=== PATIENT | female | born 1950 | race Caucasian/White ===

== ENCOUNTER 2018-11-03 16:34 | Emergency (ER) | payer MEDICARE, BC ==
[2018-11-03 17:21] LABS: ANION GAP 15.3; CHLORIDE,CL 103 mmol/L (101-111); SODIUM,NA 136 mmol/L (135-145)
--- NOTE | 2018-11-03 17:40 | EDM.PDOC ---
ED HPI GENERAL MEDICAL PROBLEM - General Chief Complaint: Trauma Stated Complaint: FELL DOWN STAIRS Time Seen by Provider: 11/03/18 17:10 Source of Information: Reports: Patient History Limitations: Reports: No Limitations - History of Present Illness INITIAL COMMENTS - FREE TEXT/NARRATIVE: Patient fell down 7 stairs and hit face, wrists and knees. Right wrist is in a lot of pain. Left wrist also hurts, but not as bad. Patient takes aspirin daily. drove her in personal vehicle to ER. Primary survey: Airway: open and patent Breathing: regular without additional effort Circulation: no major bleeding noticed Deformity: some swelling on the lateral side of her right wrist. Expose: as appropriate GCS: 15 Secondary survey: HEENT Head: normocephalic, atraumatic Face: scraped upper lip Eyes: PERRLA Ears: no obvious trauma, no bleeding in the canal Nose: no deformity, no bleeding, mucosa moist Mouth: no noted trauma Throat: no abnormalities noted Neck: supple normal ROM, no cervical tenderness Chest: lung sounds clear and equal bilaterally, heart RRR, no murmurs, rubs or gallops Abdomen: normal bowel sounds, no tenderness to palpation, no organomegaly Pelvis: stable Extremities: swelling of right and left wrist, scrape of the right knee. Provider trauma notes: Arrival time: 16:38 GCS on arrival: 15 C-collar present on arrival: no placed by ED nurse at 16:58 GCS at one hour: 15 Time of primary survey: 17:10 Time of secondary survey: 1715 Time C-collar cleared: By: Oswaldo Franco Time removed: 1758 GCS discharge: Onset: Today Onset Date: 11/03/18 Location: Reports: Face, Upper Extremity, Left, Upper Extremity, Right, Lower Extremity, Right Quality: Reports: Stabbing, Throbbing Severity: Moderate Improves with: Reports: Immobilization Worsens with: Reports: Movement Context: Reports: Trauma Associated Symptoms: Reports: Headaches. Denies: Confusion, Shortness of Breath - Related Data Allergies Allergy/AdvReac Type Severity Reaction Status Date / Time erythromycin base Allergy Hives Verified 11/29/16 23:15 naproxen Allergy Hives Verified 11/29/16 23:15 Penicillins Allergy Hives Verified 11/29/16 23:15 Home Meds: Home Meds Albuterol [Ventolin HFA] 1 puff .XX ASDIRECTED PRN 11/03/18 [History] Aspirin [Ecotrin] 81 mg PO DAILY 11/03/18 [History] Digoxin 125 mcg PO DAILY 11/03/18 [History] Diltiazem HCl [Cartia Xt] 120 mg PO DAILY 11/03/18 [History] Fluticasone/Salmeterol [Advair 250-50 Diskus] 1 puff INH BID 11/03/18 [History] Isosorbide Mononitrate [Isosorbide Mononitrate ER] 30 mg PO DAILY 11/03/18 [ History] Levothyroxine Sodium [Synthroid] 100 mcg PO DAILY 11/03/18 [History] Nitroglycerin 0.4 mg SL ASDIRECTED PRN 11/03/18 [History] Omeprazole 20 mg PO DAILY 11/03/18 [History] atorvaSTATin [Lipitor] 10 mg PO BEDTIME 11/03/18 [History] Past Medical History Cardiovascular History: Reports: Hypertension, [place] Oncologic (Cancer) History: Reports: Breast - Past Surgical History Oncologic Surgical History: Reports: Mastectomy Social & Family History - Caffeine Use Caffeine Use: Reports: None Review of Systems - Review of Systems Review Of Systems: See Below Constitutional: Reports: No Symptoms Eyes: Reports: No Symptoms Ears: Reports: No Symptoms Nose: Reports: No Symptoms Mouth/Throat: Reports: No Symptoms Respiratory: Reports: No Symptoms Cardiovascular: Reports: No Symptoms GI/Abdominal: Reports: No Symptoms Musculoskeletal: Reports: Arm Pain Skin: Reports: Bruising Neurological: Reports: Headache, Tremors. Denies: Confusion, Dizziness Psychiatric: Reports: No Symptoms ED EXAM, GENERAL - Physical Exam Exam: See Below Exam Limited By: No Limitations General Appearance: Alert Eye Exam: Bilateral Eye: EOMI, Normal Inspection, PERRL Ears: Normal External Exam, Normal Canal, Hearing Grossly Normal, Normal TMs Nose: Normal Inspection, Normal Mucosa, No Blood Throat/Mouth: Normal Inspection, Normal Lips, Normal Teeth, Normal Gums, Normal Oropharynx, Normal Voice, No Airway Compromise Head: Facial Tenderness, Other (abrasion to right upper lip and contusion to left cheek) Neck: Normal Inspection, Supple, Tender Midline (tender at the posterior occiput and tender to lateral movement) Respiratory/Chest: No Respiratory Distress, Lungs Clear, Normal Breath Sounds, No Accessory Muscle Use, Chest Non-Tender Cardiovascular: Normal Peripheral Pulses, Regular Rate, Rhythm, No Edema, No Gallop, No JVD, No Murmur, No Rub GI/Abdominal: Normal Bowel Sounds, Soft, Non-Tender, No Organomegaly, No Distention, No Abnormal Bruit, No Mass (Female) Exam: Deferred Rectal (Female) Exam: Deferred Extremities: Arm Pain (bilateral wrists ), Leg Pain (bilateral knee contusions) Neurological: Alert, Oriented, Normal Cognition Psychiatric: Normal Affect, Normal Mood Skin Exam: Warm, Dry, Intact, Normal Color, No Rash ED TRAUMA PROCEDURES - Splinting Right Upper Extremity Splint Site: right wrist Pre-Procedure NV Status: Normal Post-Procedure NV Status: Normal Splint Material: Fiberglass Splint Design: Gutter Applied & Form Fitted By: Provider Provider Post-Splint Application NV Check: NV Status Normal, Good Position Complications: No Left Upper Extremity Pre-Procedure NV Status: Normal Post-Procedure NV Status: Normal Splint Material: Velcro Splint Design: Other Applied & Form Fitted By: Nurse Provider Post-Splint Application NV Check: NV Status Normal, Good Position Complications: No Course - Orders/Labs/Meds Orders: Active Orders 24 hr Category Date Time Status Cervical Spine wo Cont [CT] Urgent Exams 11/03/18 17:02 Ordered Knee 1V or 2V Lt [CR] Urgent Exams 11/03/18 17:11 Taken Knee 1V or 2V Rt [CR] Urgent Exams 11/03/18 17:11 Taken Max Facial Sinus wo Cont [CT] Urgent Exams 11/03/18 17:02 Ordered Wrist Comp Min 3V Bi [CR] Urgent Exams 11/03/18 17:02 Taken Labs: Laboratory Tests 11/03/18 11/03/18 Range/Units 16:46 16:46 WBC 8.2 (5.0-10.0) 10^3/uL RBC 4.04 L (4.2-5.4) 10^6/uL Hgb 11.9 L (12.0-16.0) g/dL Hct 36.8 L (37.0-47.0) % MCV 91.1 (80-100) fL MCH 29.5 (27.0-34.0) pg MCHC 32.3 L (33.0-35.0) g/dL Plt Count 256 (150-450) 10^3/uL Neut % (Auto) 64.8 (42.2-75.2) % Lymph % (Auto) 23.4 (20.5-50.1) % [place] % (Auto) 9.8 H (2-8) % Eos % (Auto) 1.6 (1.0-3.0) % Baso % (Auto) 0.4 (0.0-1.0) % Sodium 136 (135-145) mmol/L Potassium 4.3 (3.6-5.0) mmol/L Chloride 103 (101-111) mmol/L Carbon Dioxide 22.0 (21.0-31.0) mmol/L Anion Gap 15.3 BUN 21 H (7-18) mg/dL Creatinine 1.2 (0.6-1.3) mg/dL Est Cr Clr Drug Dosing TNP Estimated GFR (MDRD) 44 BUN/Creatinine Ratio 17.50 Glucose 133 H (74-105) mg/dL Calcium 9.1 (8.4-10.2) mg/dl Total Bilirubin 0.6 (0.2-1.0) mg/dL AST 32 (10-42) IU/L ALT 22 (10-60) IU/L Alkaline Phosphatase 69 (42-121) IU/L Total Protein 7.2 (6.7-8.2) g/dl Albumin 4.3 (3.2-5.5) g/dl Globulin 2.9 Albumin/Globulin Ratio 1.48 - Re-Assessments/Exams Free Text/Narrative Re-Assessment/Exam: 11/03/18 18:13 CT of c-spine reviewed, c-collar removed. minimal pain on palpation at the posterior occiput. Radiology reports from [facility] were reviewed and scanned into patient record. 11/03/18 18:14 Departure - Departure Time of Disposition: 18:17 Disposition: Home, Self-Care 01 Condition: Fair Clinical Impression: Fall down stairs Qualifiers: Encounter type: initial encounter Qualified Code(s): W10.8XXA - Fall (on) (from ) other stairs and steps, initial encounter Wrist fracture, bilateral Qualifiers: Encounter type: initial encounter Fracture type: closed Qualified Code(s): S62.101A - Fracture of unspecified carpal bone, right wrist, initial encounter for closed fracture; S62.102A - Fracture of unspecified carpal bone, left wrist , initial encounter for closed fracture Contusion Qualifiers: Encounter type: initial encounter Contusion area: knee Laterality: unspecified laterality Qualified Code(s): S80.00XA - Contusion of unspecified knee, initial encounter - Discharge Information *PRESCRIPTION DRUG MONITORING PROGRAM REVIEWED*: Not Applicable *COPY OF PRESCRIPTION DRUG MONITORING REPORT IN PATIENT CHRISTIANO: Not Applicable Instructions: Wrist Fracture Treated With Immobilization, [id number], Contusion, [id number] Forms: ED Department Discharge Care Plan Goals: Patient and spouse were advised on bilateral wrist fractures with the right being worse than the left. The patient should f/u with orthopedic provider within the next week. If the patient has any other sx or concerns contact primary care facility or come back to the ER. - Problem List Review Problem List Initiated/Reviewed/Updated: Yes - Assessment/Plan Assessment:: 68 y/o female presents with bilateral wrist pain, headache, scraped right knee after falling down 7 steps. Patient has impacted and comminuted distal radial fracture on right and impacted distal radial fracture on the left. No neck, face or knee fractures. Plan: Splint right and left wrists
[2018-11-03] MEDS ORDERED: Acetaminophen 325 MG Tab PO ONE (18:34)
== END 2018-11-03 18:41 | disposition home or self-care (01) ==
LOC: DL.ED 16:34
DX: S62.101A Fracture of unspecified carpal bone, right wrist, initial encounter for closed fracture (principal); S62.102A Fracture of unspecified carpal bone, left wrist, initial encounter for closed fracture; S80.00XA Contusion of unspecified knee, initial encounter; I10 Essential (primary) hypertension; Z88.1 Allergy status to other antibiotic agents; Z79.899 Other long term (current) drug therapy; Z79.82 Long term (current) use of aspirin; W10.8XXA Fall (on) (from) other stairs and steps, initial encounter
CPT/HCPCS: 29125; 36415; 70486; 72125; 73110-50; 73560-LT; 73560-RT; 80053; 85025; 99284; A9270-GY

== ENCOUNTER 2019-07-08 12:15 | Emergency (ER) | payer MEDICARE, BC ==
--- NOTE | 2019-07-08 12:24 | EDM.PDOC ---
ED HPI GENERAL MEDICAL PROBLEM - General Chief Complaint: Upper Extremity Injury/Pain Stated Complaint: PT FELL AND INJURED LEFT ELBOW Time Seen by Provider: 07/08/19 12:40 Source of Information: Reports: Patient, Family, Old Records, RN, RN Notes Reviewed History Limitations: Reports: No Limitations - History of Present Illness INITIAL COMMENTS - FREE TEXT/NARRATIVE: Pt presents to ER from home by POV, ambulatory to the ER with c/o left elbow pain, and also some minor pain to the B/L knees, and left hip. Pt admits to mild neck pain, and that she hit her nose hard enough to cause a brief self limited nose bleed, and that she has some swelling & bruise at the left eyebrow. Pt takes Aspirin 81mg daily. At this point the triage nurse informed me that she was converting the pt to a trauma chart without full trauma activation per the trauma policy. The pt denies any symptoms preceding the fall such as chest pain, dizziness, syncope, blurred vision, or motor weakness. Pt states she simply tripped over a boot rack. Pt denies LOC, nausea, vomiting, or drainage of clear or blood fluid from the ears. *Pt refused to wear a C-collar, stating that her neck only hurt because of the uncomfortable pillow on the ER gurney. TRAUMA NOTES ARRIVAL TIME: 1220HRS C-COLLAR STATUS: refused by pt SPINAL BOARD/IMMOBILIZATION STATUS: N/V GCS ON ARRIVAL: 15 Onset: Today Onset Date: 07/08/19 Onset Time: 12:00 Duration: Constant Location: Reports: Face, Upper Extremity, Left, Lower Extremity, Left, Lower Extremity, Right Quality: Reports: Ache Severity: Moderate (Rates pain 4/10 at left elbow) Improves with: Reports: Immobilization, Rest Worsens with: Reports: Movement Context: Reports: Other (Ground level fall) Associated Symptoms: Reports: No Other Symptoms Eye Pain Score (Numeric/FACES): 4 - Related Data Allergies Allergy/AdvReac Type Severity Reaction Status Date / Time erythromycin base Allergy Hives Verified 07/08/19 12:30 naproxen Allergy Hives Verified 07/08/19 12:30 Penicillins Allergy Hives Verified 07/08/19 12:30 Home Meds: Home Meds Albuterol [Ventolin HFA] 1 puff .XX ASDIRECTED PRN 11/03/18 [History] Aspirin [Ecotrin] 81 mg PO DAILY 11/03/18 [History] Digoxin 125 mcg PO DAILY 11/03/18 [History] Diltiazem HCl [Cartia Xt] 120 mg PO DAILY 11/03/18 [History] Fluticasone/Salmeterol [Advair 250-50 Diskus] 1 puff INH BID 11/03/18 [History] Isosorbide Mononitrate [Isosorbide Mononitrate ER] 30 mg PO DAILY 11/03/18 [ History] Levothyroxine Sodium [Synthroid] 100 mcg PO DAILY 11/03/18 [History] Nitroglycerin 0.4 mg SL ASDIRECTED PRN 11/03/18 [History] Omeprazole 20 mg PO DAILY 11/03/18 [History] atorvaSTATin [Lipitor] 10 mg PO BEDTIME 11/03/18 [History] Past Medical History Cardiovascular History: Reports: Arrhythmia, CAD, High Cholesterol, Hypertension , [place] Respiratory History: Reports: Asthma, SOB Gastrointestinal History: Reports: GERD Musculoskeletal History: Reports: Fracture (B/L wrists.) Endocrine/Metabolic History: Reports: Hypothyroidism Immunologic History: Reports: Other (See Below) (Scleroderma) Oncologic (Cancer) History: Reports: Breast - Past Surgical History Oncologic Surgical History: Reports: Mastectomy Social & Family History - Family History Family Medical History: Noncontributory - Caffeine Use Caffeine Use: Reports: None - Living Situation & Occupation Living situation: Reports: , with Spouse Occupation: Retired ED ROS GENERAL - Review of Systems Review Of Systems: ROS reveals no pertinent complaints other than HPI. ED EXAM, GENERAL - Physical Exam Exam: See Below Free Text/Narrative:: PRIMARY TRAUMA SURVEY (1240hrs - immediately upon notification by hoisting engineer that pt was being converted to a trauma chart) AIRWAY: Patent nasal and oral airways. BREATHING: Spontaneous respirations with clear B/L breath sounds. CIRCULATION: Heart RRR, intact distal pulses at all four extremities, no cyanosis. DEFORMITY/DISABILITY: Head NC with contusion/hematoma to left eyebrow. Small amt. of dried blood in nares. Left elbow tenderness with decreased ROM and a small faint bruise. Tenderness to left hip with painful ROM. No long bone deformities. No active bleeding. No neuro. deficits. Abdomen benign to exam. Pelvis is stable. EXPOSURE: Skin warm, and dry. SECONDARY TRAUMA SURVEY FOLLOWS (1320hrs) Exam Limited By: No Limitations General Appearance: Alert, WD/WN, No Apparent Distress Eye Exam: Left Eye: Periorbital Changes (Left eyebrow contusion/hematoma, skin is intact), Bilateral Eye: EOMI, PERRL Ear Exam: Bilateral Ear: Auricle Normal, Canal Normal, TM normal (No hemotympanum) Nose: Nasal Tenderness, Other (Small amt. of dried blood in B/L nares.). No: Nasal Deformity, Nasal Swelling, Nasal Drainage Throat/Mouth: Normal Inspection, Normal Lips, Normal Teeth, Normal Gums, Normal Oropharynx, Normal Voice, No Airway Compromise Head: Atraumatic, Normocephalic Neck: Supple, Full Range of Motion, Tender Lateral (Mild), Other (No nuzhat tenderness. Pt refused C-collar. 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 No: Lymphadenopathy (L), Lymphadenopathy (R), Tender Midline Respiratory/Chest: No Respiratory Distress, Lungs Clear, Normal Breath Sounds, No Accessory Muscle Use, Chest Non-Tender Cardiovascular: Normal Peripheral Pulses, Regular Rate, Rhythm, No Edema, No Gallop, No JVD, No Murmur, No Rub GI/Abdominal: Normal Bowel Sounds, Soft, Non-Tender, No Organomegaly, No Distention, No Abnormal Bruit, No Mass Back Exam: Normal Inspection, Full Range of Motion. No: CVA Tenderness (L), CVA Tenderness (R), Vertebral Tenderness Extremities: No Pedal Edema, Normal Capillary Refill, Other (unchanged from primary trauma survey). No: Joint Swelling Neurological: Alert, Oriented, CN II-XII Intact, Normal Cognition, No Motor/ Sensory Deficits, Other (GCS 15 at 1hr and at DC.) Psychiatric: Normal Affect, Normal Mood Skin Exam: Warm, Dry, Intact Course - Vital Signs Last Recorded V/S: Last Vital Signs Temp 98.3 F 07/08/19 12:24 Pulse 68 07/08/19 12:24 Resp 16 07/08/19 12:24 BP Pulse Ox 99 07/08/19 12:24 - Radiology Interpretation Free Text/Narrative:: CT Head: no acute findings per Rad. report. CT C-spine: no fractures per Rad. report. XR Left hip, pelvis: no fractures per Rad. report. XR Left Elbow: no fractures per Rad. report. Departure - Departure Time of Disposition: 13:46 Disposition: Home, Self-Care 01 Condition: Good Clinical Impression: Fall as cause of accidental injury at home as place of occurrence Qualifiers: Encounter type: initial encounter Qualified Code(s): W19.XXXA - Unspecified fall, initial encounter Facial contusion Qualifiers: Encounter type: initial encounter Qualified Code(s): S00.83XA - Contusion of other part of head, initial encounter Contusion of knee Qualifiers: Encounter type: initial encounter Laterality: unspecified laterality Qualified Code(s): S80.00XA - Contusion of unspecified knee, initial encounter Sprain of left elbow Qualifiers: Encounter type: initial encounter Qualified Code(s): S53.402A - Unspecified sprain of left elbow, initial encounter - Discharge Information *PRESCRIPTION DRUG MONITORING PROGRAM REVIEWED*: No *COPY OF PRESCRIPTION DRUG MONITORING REPORT IN PATIENT CHRISTIANO: No Instructions: Facial or Scalp Contusion, [id number], Contusion, [id number] Forms: ED Department Discharge Additional Instructions: Activity as tolerated. Be careful not to fall. Follow up in clinic if needed.
[2019-07-08 12:30] VITALS: PULSE 68
--- NOTE | 2019-07-08 13:27 | CT ---
EXAMINATION: Head wo Cont SEX: Female AGE: 69 years CLINICAL HISTORY: 69-year-old anticoagulated female injured in ground-level fall TRAUMA, L forehead, nose injury, neck pain. Scan technique: Volume acquisition of data emergency unenhanced CT scan of the head and brain obtained with the patient lying supine on the Siemens multi slice scanner [place], [place]. All data archived in the PACS system for storage, reformatting axial/sagittal/coronal planes and study (bone/brain windows). INTERPRETATION: 1. Generalized cerebral cortical atrophy pattern with underlying microvascular ischemic changes (scattered areas of decreased attenuation). 2. Uniformly thick bony calvarium without sign of skull fracture, underlying brain contusion or abnormal extracerebral/intracranial epidural or subdural hematoma. 3. 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 Paranasal and left mastoid sinuses satisfactorily pneumatized and clear. 4. No supratentorial or posterior fossa mass lesion. No hydrocephalus. Cerebellum and brainstem unremarkable. 5. No sign of acute intracerebral/intraventricular/subarachnoid bleed. CONCLUSION: No skull fracture or acute intracranial bleed. CONCLUSION:
--- NOTE | 2019-07-08 13:31 | CT ---
EXAMINATION: Cervical Spine wo Cont SEX: Female AGE: 69 years CLINICAL HISTORY: 69-year-old anticoagulated female with ground-level fall and trauma (neck pain). Scan technique: Volume acquisition of data emergency unenhanced CT scan of the cervical and upper thoracic spine obtained with patient lying supine on the Siemens multi slice scanner [place], [place]. All data archived in the PACS system for storage, reformatting axial/sagittal/coronal planes and study (bone/soft tissue windows). Interpretation: 1. Generalized osteopenia consistent with age and gender. 2. Subtle anterolisthesis C4 vertebral body with signs of chronic mild cervical disc disease C4-5, C5-6 levels (interspace narrowing and sclerosis). 3. No prevertebral soft tissue swelling, cervical fracture, other dislocation or jumped locked facets. 4. Chronic hypertrophic marginal spondylosis several levels upper thoracic spine (no thoracic fracture or dislocation). 5. No basal skull fracture. Normal TMJs. CONCLUSION: No acute fractures.
--- NOTE | 2019-07-08 13:33 | CR ---
EXAMINATION: Hip Min 1V w Pelvis Lt SEX: Female AGE: 69 years CLINICAL HISTORY: 69-year-old female injured (TRAUMA), ground level fall and complaining now of left hip pain . INTERPRETATION: 1. Multilevel lower lumbar disc disease and hypertrophic arthritic changes of the spine. 2. Homogeneous normal bone mineral density for age and gender. 3. No sign of pelvic or either hip fracture/dislocation. 4. Symmetric normal spacing of the SI and hip joints without arthritic degenerative change. 5. No foreign bodies. CONCLUSION: No fractures of the pelvis or either hip.
--- NOTE | 2019-07-08 13:36 | CR ---
EXAMINATION: Elbow 2V Lt SEX: Female AGE: 69 years CLINICAL HISTORY: Ground level fall, left elbow injury/pain INTERPRETATION: (AP lateral) 1. Radiopacities in the soft tissues beneath the proximal ulna has the appearance of calcification or foreign body like "gravel". Clinical? No other foreign bodies. 2. Tiny bone spur at insertion of triceps tendon posteriorly on the olecranon process proximal left ulna. 3. No sign of left elbow joint effusion, acute fracture or dislocation. CONCLUSION: No acute fracture.
== END 2019-07-08 13:57 | disposition home or self-care (01) ==
LOC: DL.ED 12:15
DX: S53.402A Unspecified sprain of left elbow, initial encounter (principal); S00.12XA Contusion of left eyelid and periocular area, initial encounter; S80.00XA Contusion of unspecified knee, initial encounter; S00.83XA Contusion of other part of head, initial encounter; I10 Essential (primary) hypertension; Z88.1 Allergy status to other antibiotic agents; Z88.0 Allergy status to penicillin; Z88.8 Allergy status to other drugs, medicaments and biological substances; W01.198A Fall on same level from slipping, tripping and stumbling with subsequent striking against other object, initial encounter
CPT/HCPCS: 70450; 72125; 73070-LT; 99284-25

== ENCOUNTER 2021-07-22 17:56 | Emergency (ER) | payer MEDICARE, BC ==
[2021-07-22 20:22] VITALS: BP 142/71; PULSE 79
[2021-07-22 20:49] LABS: ANION GAP 14.5 mEq/L (7-13); CHLORIDE,CL 106 mmol/L (98-107); SODIUM,NA 143 mmol/L (136-145)
[2021-07-22 21:01] LABS: PTT,PARTIAL THROMBOPLSTIN TIME 26.1 SEC (22.0-34.0)
--- NOTE | 2021-07-22 22:10 | EDM.PDOC ---
ED HPI GENERAL MEDICAL PROBLEM - General Chief Complaint: ENT Problem Stated Complaint: BLOODY NOSE SINCE 2PM Time Seen by Provider: 07/22/21 22:00 Source of Information: Reports: Patient - History of Present Illness INITIAL COMMENTS - FREE TEXT/NARRATIVE: Pt is here for a nose bleed that started around 2pm today. She went for a walk with her then came in and blew her nose. She got a blood clot out of her left nare then noted bleeding from her right nare. She applied a cold wash cloth and pressure to help get it to slow down and stop, but it continued to bleed off and on for some time so she decided to come in for further evaluation. She has had several nose bleeds since starting on Eliquis. She does not take any nasal steroid since she developed a hole in her nasal septum. She does use saline spray and moisturizers. The bleeding has stopped completely since arrival to the ER. Onset: Today, Sudden Onset Time: 14:00 - Related Data Allergies Allergy/AdvReac Type Severity Reaction Status Date / Time budesonide [From Symbicort] Allergy Headache Verified 04/25/21 10:33 codeine Allergy Other Verified 04/25/21 10:33 erythromycin base Allergy Hives Verified 04/25/21 10:33 eszopiclone Allergy Other Verified 04/25/21 10:33 formoterol [From Symbicort] Allergy Headache Verified 04/25/21 10:33 naproxen Allergy Hives Verified 04/25/21 10:33 penicillamine Allergy Other Verified 04/25/21 10:33 [From Cuprimine] Penicillins Allergy Hives Verified 04/25/21 10:33 pneumococcal vaccine Allergy Rash Verified 04/25/21 10:33 tetracycline Allergy Nausea and Verified 04/25/21 10:33 Vomiting zolpidem Allergy Other Verified 04/25/21 10:33 Home Meds: Home Meds Albuterol [Ventolin HFA] 1 puff .XX ASDIRECTED PRN 11/03/18 [History] Aspirin [Ecotrin] 81 mg PO DAILY 11/03/18 [History] Digoxin 125 mcg PO DAILY 11/03/18 [History] Isosorbide Mononitrate [Isosorbide Mononitrate ER] 30 mg PO DAILY 11/03/18 [History] Levothyroxine Sodium [Synthroid] 100 mcg PO DAILY 11/03/18 [History] Nitroglycerin 0.4 mg SL ASDIRECTED PRN 11/03/18 [History] Cholecalciferol (Vitamin D3) [Vitamin D3] 1 tab PO DAILY 04/25/21 [History] Loratadine [Claritin] 10 mg PO DAILY PRN 04/25/21 [History] Polyethylene Glycol/Polyvinyl [Hypotears Eye Drops] 1 drop EYEBOTH DAILY PRN 04/25/21 [History] dilTIAZem HCL [Cartia Xt] 240 mg PO DAILY 04/25/21 [History] estradioL [Estrace 0.01% Vaginal Crm] 1 applic VAG .2NIGHTWEEKLY 04/25/21 [History] Clopidogrel [Plavix] 75 mg PO DAILY 06/06/21 [History] Fluticasone Propion/Salmeterol [Advair 250-50 Diskus] 1 inh PO BID 06/06/21 [History] atorvaSTATin [Lipitor] 40 mg PO DAILY 06/06/21 [History] Apixaban [Eliquis] 5 mg PO DAILY 07/10/21 [History] Past Medical History HEENT History: Reports: Impaired Vision Other HEENT History: wears glasses Cardiovascular History: Reports: Arrhythmia, CAD, High Cholesterol, Hypertension, [place] Respiratory History: Reports: Asthma, SOB Other 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 Gastrointestinal History: Reports: GERD Genitourinary History: Reports: None SAMPLE TESTER GRINDER History: Reports: None Musculoskeletal History: Reports: Fracture, Fibromyalgia Neurological History: Reports: None Psychiatric History: Reports: None Endocrine/Metabolic History: Reports: Hypothyroidism Hematologic History: Reports: None Immunologic History: Reports: Other (See Below) Oncologic (Cancer) History: Reports: Breast - Infectious Disease History Infectious Disease History: Reports: Chicken Pox, Measles, Shingles - Past Surgical History Head Surgeries/Procedures: Reports: None Cardiovascular Surgical History: Reports: Coronary Artery Stent Oncologic Surgical History: Reports: Mastectomy Social & Family History - Family History Family Medical History: No Pertinent Family History - Tobacco Use Tobacco Use Status *Q: Never Tobacco User Second Hand Smoke Exposure: No - Caffeine Use Caffeine Use: Reports: Coffee - Recreational Drug Use Recreational Drug Use: No - Living Situation & Occupation Living situation: Reports: , with Spouse Occupation: Retired ED ROS ENT - Review of Systems Review Of Systems: Comprehensive ROS is negative, except as noted in HPI. ED EXAM, ENT - Physical Exam Exam: See Below Exam Limited By: No Limitations General Appearance: Alert, WD/WN, No Apparent Distress Eye Exam: Bilateral Eye: Normal Inspection Ears: Normal External Exam Nose: Normal Inspection, Septal Perforation, Dried Blood (with clot over kesselbachs plexus in right nare). No: Active Bleeding Mouth/Throat: Normal Inspection, Normal Teeth Head: Atraumatic, Normocephalic Neck: Normal Inspection, Supple Respiratory/Chest: No Respiratory Distress, Lungs Clear, Normal Breath Sounds, No Accessory Muscle Use Cardiovascular: Normal Peripheral Pulses, Regular Rate, Rhythm, No Murmur GI/Abdominal: Soft, No Distention (Female) Exam: Deferred Rectal (Female) Exam: Deferred Back: Normal Inspection, Full Range of Motion Extremities: Normal Inspection, Normal Range of Motion Neurological: Alert, Oriented, Normal Cognition, No Motor/Sensory Deficits Psychiatric: Normal Affect, Normal Mood Skin: Warm, Dry, Intact, Normal Color, No Rash Lymphatic: No Adenopathy Course - Vital Signs Last Recorded V/S: Last Vital Signs Temp 98 F 07/22/21 20:18 Pulse 79 07/22/21 20:18 Resp 16 07/22/21 20:18 BP 142/71 H 07/22/21 20:18 Pulse Ox 100 07/22/21 20:18 - Orders/Labs/Meds Labs: Laboratory Tests 07/22/21 07/22/21 07/22/21 Range/Units 20:25 20:25 20:25 WBC 7.6 (5.0-10.0) 10^3/uL RBC 3.74 L (4.2-5.4) 10^6/uL Hgb 11.1 L (12.0-16.0) g/dL Hct 35.2 L (37.0-47.0) % MCV 94.1 D (80-100) fL MCH 29.7 (27.0-34.0) pg MCHC 31.5 L (33.0-35.0) g/dL Plt Count 263 (150-450) 10^3/uL Neut % (Auto) 69.2 (42.2-75.2) % Lymph % (Auto) 17.0 L (20.5-50.1) % Bullitt % (Auto) 11.5 H (2-8) % Eos % (Auto) 2.0 (1.0-3.0) % Baso % (Auto) 0.3 (0.0-1.0) % PT 10.8 (9.0-12.0) SEC INR 1.1 (0.9-1.2) APTT 26.1 (22.0-34.0) SEC Sodium 143 (136-145) mmol/L Potassium 4.5 (3.5-5.1) mmol/L Chloride 106 (98-107) mmol/L Carbon Dioxide 27 (21-32) mmol/L Anion Gap 14.5 H (7-13) mEq/L BUN 15 (7-18) mg/dL Creatinine 0.79 (0.55-1.02) mg/dL Est Cr Clr Drug Dosing 54.95 mL/min Estimated GFR (MDRD) > 60 BUN/Creatinine Ratio 19.0 (No establ ref range) Glucose 106 H (70-99) mg/dL Calcium 9.1 (8.5-10.1) mg/dL Total Bilirubin 0.6 (0.2-1.0) mg/dL AST 20 (15-37) U/L ALT 23 (14-59) U/L Alkaline Phosphatase 89 (46-116) U/L Total Protein 7.5 (6.4-8.2) g/dL Albumin 4.1 (3.4-5.0) g/dL Globulin 3.4 Albumin/Globulin Ratio 1.2 - Re-Assessments/Exams Free Text/Narrative Re-Assessment/Exam: Reviewed normal labs with the pt. As it is not actively bleeding, advised against removing the clot to attempt cautery at this time. Advised to avoid blowing her nose for a few days to let the area heal. If the bleeding returns, call/return to the ER. Advised pt to follow up with her PCP. Discussed use of af rin in the event of recurrent bleed where she cannot get the bleeding controlled with cold and pressure alone. Discussed limited use of this medication given her medical history. Pt verbalized understanding. 07/22/21 22:15 Departure - Departure Time of Disposition: 22:09 Disposition: Home, Self-Care 01 Condition: Good Clinical Impression: Anterior epistaxis - Discharge Information *PRESCRIPTION DRUG MONITORING PROGRAM REVIEWED*: Not Applicable *COPY OF PRESCRIPTION DRUG MONITORING REPORT IN PATIENT CHRISTIANO: Not Applicable Instructions: Nosebleed, Adult Forms: ED Department Discharge Additional Instructions: If your nose starts to bleed again, call/return to the ER Follow up with your primary care provider in 3-5 days Sepsis Event Note (ED) - Evaluation Sepsis Screening Result: No Definite Risk - Focused Exam Vital Signs: Vital Signs Temp Pulse Resp BP Pulse Ox 07/22/21 20:18 98 F 79 16 142/71 H 100
== END 2021-07-22 22:13 | disposition home or self-care (01) ==
LOC: DL.ED 17:56
DX: R04.0 Epistaxis (principal); I25.10 Atherosclerotic heart disease of native coronary artery without angina pectoris; E78.00 Pure hypercholesterolemia, unspecified; I10 Essential (primary) hypertension; I25.2 Old myocardial infarction; J45.909 Unspecified asthma, uncomplicated; E03.9 Hypothyroidism, unspecified; Z88.8 Allergy status to other drugs, medicaments and biological substances; Z88.5 Allergy status to narcotic agent; Z88.1 Allergy status to other antibiotic agents; Z88.6 Allergy status to analgesic agent; Z88.0 Allergy status to penicillin; Z88.7 Allergy status to serum and vaccine; Z79.82 Long term (current) use of aspirin; Z79.02 Long term (current) use of antithrombotics/antiplatelets; Z79.01 Long term (current) use of anticoagulants; Z79.899 Other long term (current) drug therapy
CPT/HCPCS: 36415; 80053; 85025; 85610; 85730; 99283

== ENCOUNTER 2022-01-23 16:13 | Emergency (ER) | payer MEDICARE, BC ==
[2022-01-23] MEDS ORDERED: Lidocaine 1% with EPINEPHrine 1:100,000 20 ML MDV INJECT ONE (16:28)
[2022-01-23] MEDS ORDERED: Oxymetazoline 0.05% Nasal Spray 30 ML Bottle NAS ONE (16:28)
[2022-01-23] MEDS ORDERED: Lidocaine 2% with EPINEPHrine 1:200,000 20 ML SDV INJECT ONE (16:39)
[2022-01-23 16:48] VITALS: BP 145/80; PULSE 68
[2022-01-23 17:21] LABS: PTT,PARTIAL THROMBOPLSTIN TIME 26.3 SEC (22.0-34.0)
[2022-01-23] MEDS ORDERED: Acetaminophen 500 MG Tab PO ONE (17:28)
[2022-01-23] MEDS ORDERED: Ondansetron 4 MG Tab.DIS PO ONE (18:05)
== END 2022-01-23 18:40 | disposition home or self-care (01) ==
LOC: DL.ED 16:13
DX: R04.0 Epistaxis (principal); R51.9 Headache, unspecified; I25.10 Atherosclerotic heart disease of native coronary artery without angina pectoris; E78.00 Pure hypercholesterolemia, unspecified; I10 Essential (primary) hypertension; I25.2 Old myocardial infarction; K21.9 Gastro-esophageal reflux disease without esophagitis; E03.9 Hypothyroidism, unspecified; Z88.5 Allergy status to narcotic agent; Z88.1 Allergy status to other antibiotic agents; Z88.8 Allergy status to other drugs, medicaments and biological substances; Z88.0 Allergy status to penicillin; Z88.7 Allergy status to serum and vaccine; Z79.01 Long term (current) use of anticoagulants; Z79.899 Other long term (current) drug therapy
CPT/HCPCS: 30903; 36415; 85025; 85610; 85730; 99284-25; A9270-GY

== ENCOUNTER 2022-05-19 11:19 | Emergency (ER) | payer MEDICARE, BC ==
[2022-05-19 11:48] VITALS: BP 141/52; PULSE 79
[2022-05-19 12:47] LABS: CORONAVIRUS COVID-19 NAA POSITIVE (NEGATIVE)
== END 2022-05-19 13:09 | disposition home or self-care (01) ==
LOC: DL.ED 11:19
DX: U07.1 COVID-19 (principal); I25.10 Atherosclerotic heart disease of native coronary artery without angina pectoris; I10 Essential (primary) hypertension; I25.2 Old myocardial infarction; Z88.8 Allergy status to other drugs, medicaments and biological substances; Z88.5 Allergy status to narcotic agent; Z88.1 Allergy status to other antibiotic agents; Z88.0 Allergy status to penicillin; Z88.7 Allergy status to serum and vaccine; Z79.899 Other long term (current) drug therapy; Z79.01 Long term (current) use of anticoagulants
CPT/HCPCS: 0240U; 99282; 99283

== ENCOUNTER 2022-05-28 13:23 | Emergency (ER) | payer MEDICARE, BC ==
[2022-05-28 13:39] VITALS: BP 160/77; PULSE 88
[2022-05-28] MEDS ORDERED: Sodium Chloride 0.9% 10 ML Syringe FLUSH PRN (13:50)
[2022-05-28] MEDS ORDERED: Sodium Chloride 0.9% 1,000 ML IV ONE (14:38)
[2022-05-28 14:50] LABS: ANION GAP 12.5 mEq/L (7-13)
== END 2022-05-28 17:36 | disposition home or self-care (01) ==
LOC: DL.ED 13:23
DX: I48.91 Unspecified atrial fibrillation (principal); I25.10 Atherosclerotic heart disease of native coronary artery without angina pectoris; E78.00 Pure hypercholesterolemia, unspecified; I10 Essential (primary) hypertension; I25.2 Old myocardial infarction; K21.9 Gastro-esophageal reflux disease without esophagitis; E03.9 Hypothyroidism, unspecified; Z88.5 Allergy status to narcotic agent; Z88.0 Allergy status to penicillin; Z88.8 Allergy status to other drugs, medicaments and biological substances; Z88.1 Allergy status to other antibiotic agents; Z79.899 Other long term (current) drug therapy
CPT/HCPCS: 36415; 80053; 80162; 81001; 83690; 83735; 84443; 84484; 85025; 87086; 93005; 93010; 96360; 99284; 99285; J3490; J7030

== ENCOUNTER 2022-10-17 10:53 | Emergency (ER) | payer MEDICARE, BC ==
[2022-10-17] MEDS: Sodium Chloride 0.9% 10 ML Syringe FLUSH PRN (11:06)
[2022-10-17 11:36] VITALS: BP 137/65; PULSE 76
[2022-10-17 11:41] LABS: ANION GAP 9.1 mEq/L (7-13)
[2022-10-17 11:49] LABS: PTT,PARTIAL THROMBOPLSTIN TIME 22.5 SEC (22.0-34.0)
== END 2022-10-17 14:01 | disposition home or self-care (01) ==
LOC: DL.ED 10:53
DX: R07.9 Chest pain, unspecified (principal); I48.91 Unspecified atrial fibrillation; I25.10 Atherosclerotic heart disease of native coronary artery without angina pectoris; E78.00 Pure hypercholesterolemia, unspecified; I10 Essential (primary) hypertension; I25.2 Old myocardial infarction; K21.9 Gastro-esophageal reflux disease without esophagitis; E03.9 Hypothyroidism, unspecified; Z79.01 Long term (current) use of anticoagulants; Z88.5 Allergy status to narcotic agent; Z88.1 Allergy status to other antibiotic agents; Z88.8 Allergy status to other drugs, medicaments and biological substances; Z88.0 Allergy status to penicillin; Z88.7 Allergy status to serum and vaccine; Z79.02 Long term (current) use of antithrombotics/antiplatelets; Z79.899 Other long term (current) drug therapy
CPT/HCPCS: 36415; 71045; 80053; 80162; 82150; 83690; 83880; 84484; 85025; 85610; 85730; 93005; 99285; J3490

== ENCOUNTER 2022-11-05 22:51 | Emergency (ER) | payer MEDICARE, BC ==
[2022-11-05] MEDS ORDERED: Oxymetazoline 0.05% Nasal Spray 30 ML Bottle NAS ONE (23:22)
[2022-11-05] MEDS ORDERED: Tranexamic Acid 1,000 MG/10 ML Vial ONE (23:45)
[2022-11-06 00:43] VITALS: BP 149/72; PULSE 64
== END 2022-11-06 01:15 | disposition home or self-care (01) ==
LOC: DL.ED 22:51
DX: R04.0 Epistaxis (principal); I48.91 Unspecified atrial fibrillation; I25.10 Atherosclerotic heart disease of native coronary artery without angina pectoris; I10 Essential (primary) hypertension; E78.00 Pure hypercholesterolemia, unspecified; I25.2 Old myocardial infarction; J45.909 Unspecified asthma, uncomplicated; E03.9 Hypothyroidism, unspecified; Z88.8 Allergy status to other drugs, medicaments and biological substances; Z88.5 Allergy status to narcotic agent; Z88.1 Allergy status to other antibiotic agents; Z88.0 Allergy status to penicillin; Z88.7 Allergy status to serum and vaccine; Z79.01 Long term (current) use of anticoagulants; Z79.899 Other long term (current) drug therapy
CPT/HCPCS: 99283; A9270; 30903

== ENCOUNTER 2023-05-25 21:59 | Emergency (ER) | payer MEDICARE, BC ==
[2023-05-25] MEDS ORDERED: Sodium Chloride 0.9% 10 ML Syringe FLUSH PRN ×2 (22:06→22:21)
[2023-05-25 22:25] LABS: BASOPHILS PERCENT AUTO 0.1 % (0.0-1.0); HEMATOCRIT 35.1 % (37.0-47.0); HEMOGLOBIN 11.5 g/dL (12.0-16.0); LYMPHOCYTES PERCENT AUTO 3.8 % (20.5-50.1); MEAN CORPUSCULAR HEMOGLOBIN 30.9 pg (27.0-34.0); MEAN CORPUSCULAR HGB CONC 32.8 g/dL (33.0-35.0); MEAN CORPUSCULAR VOLUME 94.4 fL (80-100); MONOCYTES PERCENT AUTO 8.8 % (2-8); NEUTROPHILS PERCENT AUTO 86.3 % (42.2-75.2); PLATELET COUNT,PLT 161 10^3/uL (150-450); RED BLOOD CELL COUNT 3.72 10^6/uL (4.2-5.4); WHITE BLOOD CELL COUNT,WBC 9.1 10^3/uL (5.0-10.0)
[2023-05-25 22:39] LABS: PROTHROMBIN TIME 10.5 SEC (9.0-12.0)
[2023-05-25 22:40] LABS: ALBUMIN 3.5 g/dL (3.4-5.0); ANION GAP 12.9 mEq/L (7-13); BILIRUBIN TOTAL 1.2 mg/dL (0.2-1.0); BUN/CREATININE RATIO 22.2 (No establ ref range); C-REACTIVE PROTEIN 6.1 mg/dL (0.0-0.9); CALCIUM 9.2 mg/dL (8.5-10.1); CREATININE 0.81 mg/dL (0.55-1.02); MAGNESIUM 2.1 mg/dL (1.8-2.4); POTASSIUM,K 3.9 mmol/L (3.5-5.1); PROTEIN TOTAL,TP 7.1 g/dL (6.4-8.2)
[2023-05-25 22:43] LABS: LACTIC ACID 0.8 mmol/L (0.4-2.0)
[2023-05-25 23:00] LABS: APPEARANCE,URINE CLEAR (CLEAR); BILIRUBIN,URINE NEGATIVE (NEGATIVE); COLOR,URINE YELLOW (YELLOW); GLUCOSE,URINE NEGATIVE (NEGATIVE); KETONES,URINE NEGATIVE (NEGATIVE); LEUKOCYTE ESTERASE,URINE NEGATIVE (NEGATIVE); NITRITE,URINE NEGATIVE (NEGATIVE); OCCULT BLOOD,URINE TRACE-INTACT (NEGATIVE); PROTEIN,URINE NEGATIVE (NEGATIVE); UROBILINOGEN,URINE 0.2 mg/dL (0.2-1.0)
[2023-05-25 23:08] LABS: BACTERIA,URINE RARE /HPF (0-FEW/HPF); EPITHELIAL CELLS,URINE RARE /HPF (NOT SEEN); RBC,URINE 0-5 /HPF (0-5); WBC,URINE 0-5 /HPF (0-5/HPF)
[2023-05-26 00:04] VITALS: BP 124/68; PULSE 70
== END 2023-05-25 23:54 | disposition home or self-care (01) ==
LOC: DL.ED 21:59
DX: R47.01 Aphasia (principal); I48.91 Unspecified atrial fibrillation; I25.10 Atherosclerotic heart disease of native coronary artery without angina pectoris; E78.00 Pure hypercholesterolemia, unspecified; I10 Essential (primary) hypertension; I25.2 Old myocardial infarction; J45.909 Unspecified asthma, uncomplicated; Z88.1 Allergy status to other antibiotic agents; Z88.0 Allergy status to penicillin; Z88.5 Allergy status to narcotic agent; Z88.8 Allergy status to other drugs, medicaments and biological substances; Z88.7 Allergy status to serum and vaccine; Z79.51 Long term (current) use of inhaled steroids; Z79.899 Other long term (current) drug therapy; Z95.5 Presence of coronary angioplasty implant and graft; Z86.16 Personal history of COVID-19
CPT/HCPCS: 36415; 70450; 80053; 81001; 82947; 83605; 83735; 85025; 85610; 85730; 86140; 93005; 93010; 99284; 99285

== ENCOUNTER 2023-09-07 13:06 | Emergency (ER) | payer MEDICARE, BC ==
[2023-09-07] MEDS ORDERED: Oxymetazoline 0.05% Nasal Spray 30 ML Bottle NAS ONE (13:51)
[2023-09-07] MEDS ORDERED: Lidocaine 1% with EPINEPHrine 1:100,000 20 ML MDV ONE (13:54)
[2023-09-07 13:58] VITALS: BP 134/69
== END 2023-09-07 14:31 | disposition home or self-care (01) ==
LOC: DL.ED 13:06
DX: R04.0 Epistaxis (principal); I10 Essential (primary) hypertension; I25.10 Atherosclerotic heart disease of native coronary artery without angina pectoris; Z79.01 Long term (current) use of anticoagulants; J45.909 Unspecified asthma, uncomplicated; E03.9 Hypothyroidism, unspecified; Z95.5 Presence of coronary angioplasty implant and graft; Z86.16 Personal history of COVID-19; Z88.0 Allergy status to penicillin; Z88.1 Allergy status to other antibiotic agents; Z88.8 Allergy status to other drugs, medicaments and biological substances; Z88.5 Allergy status to narcotic agent; Z88.7 Allergy status to serum and vaccine; Z79.899 Other long term (current) drug therapy
CPT/HCPCS: 99283; A9270-GY; J3490

== ENCOUNTER 2023-10-09 11:47 | Emergency (ER) | payer MEDICARE, BC ==
[2023-10-09] MEDS ORDERED: Sodium Chloride 0.9% 10 ML Syringe FLUSH PRN (12:07)
[2023-10-09 12:37] VITALS: BP 143/78; PULSE 132
[2023-10-09] MEDS ORDERED: Diltiazem 25 MG/5 ML SDV IVPUSH ONE (12:42)
[2023-10-09] MEDS ORDERED: cefTRIAXone 2 GM Vial IVPUSH ONE (12:44)
== END 2023-10-09 14:00 | disposition home or self-care (01) ==
LOC: DL.ED 11:47
DX: I48.91 Unspecified atrial fibrillation (principal); I10 Essential (primary) hypertension; I25.10 Atherosclerotic heart disease of native coronary artery without angina pectoris; I25.2 Old myocardial infarction; J45.909 Unspecified asthma, uncomplicated; E03.9 Hypothyroidism, unspecified; Z79.899 Other long term (current) drug therapy; Z86.16 Personal history of COVID-19; Z88.0 Allergy status to penicillin; Z88.1 Allergy status to other antibiotic agents; Z88.5 Allergy status to narcotic agent; Z88.7 Allergy status to serum and vaccine; Z88.8 Allergy status to other drugs, medicaments and biological substances; Z79.01 Long term (current) use of anticoagulants
CPT/HCPCS: 36415; 71045; 83605; 87081; 87430; 93005; 96374; 96375; 99285-25; J0696; J3490

== ENCOUNTER 2024-01-27 09:48 | Emergency (ER) | payer MEDICARE, BC ==
[2024-01-27 10:32] LABS: A/G RATIO 1.1; ALANINE AMINOTRANSFERASE,ALT 26 U/L (14-59); ALBUMIN 4.3 g/dL (3.4-5.0); ALKALINE PHOSPHATASE 93 U/L (46-116); ASPARTATE AMNIOTRANSFERASE,AST 21 U/L (15-37); BASOPHILS PERCENT AUTO 0.2 % (0.0-1.0); BILIRUBIN TOTAL 0.8 mg/dL (0.2-1.0); BLOOD UREA NITROGEN,BUN 16 mg/dL (7-18); BUN/CREATININE RATIO 20.5 (No establ ref range); CALCIUM 9.3 mg/dL (8.5-10.1); CARBON DIOXIDE,CO2 26 mmol/L (21-32); CHLORIDE,CL 103 mmol/L (98-107); CREATININE 0.78 mg/dL (0.55-1.02); EOSINOPHILS PERCENT AUTO 0.8 % (1.0-3.0); GLUCOSE RANDOM 98 mg/dL (70-99); HEMATOCRIT 39.1 % (37.0-47.0); HEMOGLOBIN 12.4 g/dL (12.0-16.0); LYMPHOCYTES PERCENT AUTO 8.3 % (20.5-50.1); MEAN CORPUSCULAR HGB CONC 31.7 g/dL (33.0-35.0); MEAN CORPUSCULAR VOLUME 94.4 fL (80-100); MONOCYTES PERCENT AUTO 8.3 % (2-8); NEUTROPHILS PERCENT AUTO 82.4 % (42.2-75.2); PLATELET COUNT,PLT 261 10^3/uL (150-450); PROTEIN TOTAL,TP 8.1 g/dL (6.4-8.2); RED BLOOD CELL COUNT 4.14 10^6/uL (4.2-5.4); SODIUM,NA 139 mmol/L (136-145); WHITE BLOOD CELL COUNT,WBC 8.9 10^3/uL (5.0-10.0)
[2024-01-27 10:33] VITALS: BP 151/68; PULSE 62
[2024-01-27 10:33] LABS: ESTIMATED GFR 79 mL/min (>=60)
[2024-01-27] MEDS: Sodium Chloride 0.9% 10 ML Syringe FLUSH PRN (10:54)
[2024-01-27 11:50] LABS: APPEARANCE,URINE CLEAR (CLEAR); BILIRUBIN,URINE NEGATIVE (NEGATIVE); COLOR,URINE YELLOW (YELLOW); GLUCOSE,URINE NEGATIVE (NEGATIVE); KETONES,URINE NEGATIVE (NEGATIVE); LEUKOCYTE ESTERASE,URINE NEGATIVE (NEGATIVE); NITRITE,URINE NEGATIVE (NEGATIVE); OCCULT BLOOD,URINE TRACE-INTACT (NEGATIVE); PROTEIN,URINE NEGATIVE (NEGATIVE); UROBILINOGEN,URINE 0.2 mg/dL (0.2-1.0)
[2024-01-27 13:27] LABS: BACTERIA,URINE FEW /HPF (0-FEW/HPF); EPITHELIAL CELLS,URINE FEW /HPF (NOT SEEN); WBC,URINE 0-5 /HPF (0-5/HPF)
== END 2024-01-27 12:17 | disposition home or self-care (01) ==
LOC: DL.ED 09:48
DX: G45.9 Transient cerebral ischemic attack, unspecified (principal); I48.91 Unspecified atrial fibrillation; I25.10 Atherosclerotic heart disease of native coronary artery without angina pectoris; I10 Essential (primary) hypertension; I25.2 Old myocardial infarction; J45.909 Unspecified asthma, uncomplicated; K21.9 Gastro-esophageal reflux disease without esophagitis; E03.9 Hypothyroidism, unspecified; Z88.8 Allergy status to other drugs, medicaments and biological substances; Z88.5 Allergy status to narcotic agent; Z88.1 Allergy status to other antibiotic agents; Z88.6 Allergy status to analgesic agent; Z88.0 Allergy status to penicillin; Z88.7 Allergy status to serum and vaccine; Z86.19 Personal history of other infectious and parasitic diseases; Z86.16 Personal history of COVID-19; Z95.5 Presence of coronary angioplasty implant and graft; Z79.51 Long term (current) use of inhaled steroids; Z79.01 Long term (current) use of anticoagulants; Z79.899 Other long term (current) drug therapy
CPT/HCPCS: 36415; 70450; 71045; 80053; 81001; 82947; 84484; 85025; 93005; 99285; J3490